=== PATIENT | female | born 1980 | race Caucasian/White ===

== ENCOUNTER 2017-10-31 20:49 | Emergency (ER) | payer OTHER ==
[2017-10-31 21:00] VITALS: TEMP 98.1
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
[2017-10-31] MEDS ORDERED: IOPAMIDOL (ISOVUE 370) 100 ML BTL IV ONE (22:54)
[2017-11-01 00:10] VITALS: BP 123/67; PULSE 78; RESP 16; O2SAT 95
== END 2017-11-01 00:08 | disposition home or self-care (01) ==
DX: S39.012A Strain of muscle, fascia and tendon of lower back, initial encounter (principal); F17.200 Nicotine dependence, unspecified, uncomplicated; S29.012A Strain of muscle and tendon of back wall of thorax, initial encounter; V89.2XXA Person injured in unspecified motor-vehicle accident, traffic, initial encounter; Y92.410 Unspecified street and highway as the place of occurrence of the external cause; Y93.89 Activity, other specified
CPT/HCPCS: 82947-QW; Q9967